=== PATIENT | female | born 1935 | race Caucasian/White ===

== ENCOUNTER 2017-12-31 09:13 | Day surgery (SDC) | payer MEDICARE, BC ==
[2017-12-25 15:28] VITALS: BMI 20.7
[~2017-12-31 09:13] MED LIST: ALPRAZolam 0.25 MG TAB PO PRN; ALPRAZolam 0.5 MG TAB PO PRN; ASPIRIN 325 MG TAB PO STA; ATORVASTATIN 80 MG TAB PO STA; NITROGLYCERIN SL TABS 0.4 MG TAB SUBLINGUAL PRN; SODIUM CHLORIDE 0.9% 1,000 ML in EMPTY BAG 1 BAG IV ONE
[2017-12-31 09:56] LABS: Basophils % (A) 0 %; Eosinophils # (A) 0.2 k/uL (0-0.7); Eosinophils % (A) 4 %; HCT 39.3 % (34.0-46.0); HGB 13.5 gm/dL (11.4-16.0); Lymphocytes # (A) 1.8 k/uL (1.0-4.8); Lymphocytes % (A) 39 %; MCH 31.9 pg (25.0-35.0); MCHC 34.2 g/dL (31.0-37.0); Mean Platelet Volume 7.3; Monocytes # (A) 0.3 k/uL (0-1.0); Monocytes % (A) 7 %; Neutrophils # (A) 2.2 k/uL (1.3-7.7); Neutrophils % (A) 48 %; Platelet Count 235 k/uL (150-450); RBC 4.23 m/uL (3.80-5.40); RDW 12.2 % (11.5-15.5); WBC 4.7 k/uL (3.8-10.6)
[2017-12-31 10:15] LABS: Anion Gap 12 mmol/L; Blood Urea Nitrogen 21 mg/dL (7-17); Carbon Dioxide 29 mmol/L (22-30); Chloride 102 mmol/L (98-107); Glucose 88 mg/dL (74-99); Potassium 4.6 mmol/L (3.5-5.1); Sodium 143 mmol/L (137-145)
[2017-12-31] MEDS ORDERED: diphenhydrAMINE 50 MG/ML 1 ML VIAL ONE (11:46)
[2017-12-31] MEDS ORDERED: MIDAZOLAM 2 MG/2 ML VIAL ONE (11:46)
[2017-12-31] MEDS ORDERED: LIDOCAINE 2% INJ 20 MG/ML (20 ML MDV) ONE (11:47)
[2017-12-31] MEDS: MIDAZOLAM 2 MG/2 ML VIAL IVP ONE ×2 (11:53→11:57)
[2017-12-31] MEDS ORDERED: diphenhydrAMINE 50 MG/ML 1 ML VIAL IVP ONE (11:53)
[2017-12-31] MEDS ORDERED: LIDOCAINE 2% INJ 20 MG/ML SQ ONE (11:56)
[2017-12-31] MEDS ORDERED: BIVALIRUDIN BOLUS 250 MG/50 ML IV ONE (12:14)
[2017-12-31] MEDS ORDERED: BIVALIRUDIN 250 MG in SODIUM CHLORIDE 0.9% 50 ML IV ONE (12:15)
[2017-12-31] MEDS: NITROGLYCERIN 1000MCG/10ML SYRINGE INTRACORON ONE ×2 (12:22→12:23)
[2017-12-31] MEDS ORDERED: CLOPIDOGREL 75 MG TAB ONE (12:26)
[2017-12-31] MEDS ORDERED: CLOPIDOGREL 75 MG TAB PO ONE (12:30)
[2017-12-31] MEDS ORDERED: IOPAMIDOL-370 100ML BTL INJ ONE (12:31)
[2017-12-31] MEDS ORDERED: RX INFO: IV CONTRAST WAS GIVEN 1 EACH MISC MISCELLANE PRN (12:33)
[2017-12-31] MEDS ORDERED: ATROPINE SULFATE 0.1 MG/ML 10ML SYRINGE IV PRN (12:33)
[2017-12-31] MEDS ORDERED: MAG HYDROX/AL HYDROX/SIMETH 30 ML CUP PO PRN (12:33)
[2017-12-31] MEDS ORDERED: ZOLPIDEM 5 MG TAB PO PRN (12:33)
[2017-12-31] MEDS ORDERED: NITROGLYCERIN SL TABS 0.4 MG TAB SUBLINGUAL PRN (12:33)
--- NOTE | 2017-12-31 15:51 | CC ---
CARDIAC CATHETERIZATION REPORT DATE OF SERVICE: 12/31/2017 PROCEDURE: 1. Left heart catheterization and coronary angiography. 2. PTCA and stenting of mid LAD with a drug-eluting stent. PERFORMED BY: Dr. Holly Armstrong. Moderate conscious sedation time was 32 minutes. The patient was administered Versed and Benadryl. She was observed closely for oxygen saturation, hemodynamics and EKG. CLINICAL INFORMATION: Imelda Dillon is an 82-year-old lady with a known history of paroxysmal atrial fibrillation and hypertension with recent abnormal stress test with anteroapical lateral reversible defect of moderate size. She was advised coronary angiography. Risks, benefits, options, rationale were explained. PROCEDURE NOTE: Under local anesthesia and strict aseptic precautions, a 6-Spanish introducer was placed in the right femoral artery. Standard Jaymie catheters were used to perform coronary angiography and a pigtail catheter was used to check LV pressures. LV gram was not performed. The patient had a significant mid LAD lesion and I went on to perform intervention in the same setting. CARDIAC CATHETERIZATION FINDINGS: The left ventricle end-diastolic pressure was about 12 mmHg without any gradient across aortic valve. Left ventriculogram was not performed. CORONARY ANGIOGRAPHY FINDINGS: RIGHT CORONARY ARTERY: This is a heavily calcified vessel, has no significant disease, distally bifurcates into a large PDA and PLV, both of which supply a sizable amount of myocardium. There are minor irregularities of about 20-30%, but no significant disease in the dominant calcified RCA. LEFT MAIN CORONARY ARTERY: Long patent disease-free vessel that bifurcates into LAD and circumflex. Left main itself has mild to moderate calcification. No significant disease. LEFT ANTERIOR DESCENDING CORONARY ARTERY: This is also a heavily calcified vessel that gives off 2 diagonal branches, very proximally and then several septal branches. After the second diagonal branch the artery has a curve and in this curve, there is a 70-80% eccentric stenosis beyond which the caliber of the vessel decreases and the vessel runs all the way to the apex to supply the inferoapical portion of left ventricle. The mid LAD therefore has a 70-80% mid lesion eccentric after which the caliber decreases. There is diffuse disease in the distal LAD noted. LEFT POSTERIOR CIRCUMFLEX CORONARY ARTERY: Technically nondominant vessel. Good caliber vessel, gives off a single obtuse marginal that runs laterally, and 2 branches in the AV groove are free of significant disease. There is also mild to moderate calcification in the mid circumflex noted. FINAL IMPRESSION: This patient has a mid LAD 70-80% stenosis. The circumflex and the RCA are also heavily calcified, but no significant disease. Left main has no significant disease. The LAD is heavily calcified. LV pressures were normal but LV-gram was not performed. RECOMMENDATION: I recommend intervention of the LAD and proceeded to perform this in the same setting. PCI PROCEDURE DETAILS: A 3.5 XB LAD guide catheter was used to cannulate the left coronary artery. I used a run-through wire to cross the lesion. Without predilatation primary stenting of this mid lesion was performed with a 2.25 caliber 12 mm long Xience stent. Excellent angiographic result without complication was achieved. The patient had chest pain and precordial ST elevation. Excellent angiographic result was achieved. There was no complication. Distal flow was excellent. The sheath was sutured in and will be pulled in about 2 to 2-1/2 hours. Results were discussed with the patient and family members. I expect that she will be discharged tomorrow if she remains stable. The patient is also on apixaban. This will be held for now and I will place her on a combination of Plavix and apixaban as an outpatient. MMODL / IJN: [id number] /
--- NOTE | 2017-12-31 15:57 | LTR ---
December 31, [address] Cruz: Thank you for the opportunity to participate in the care of Mrs Imelda Dillon. Please find enclosed my detailed cardiac catheterization report and PCI report for your records. This lady had abnormal stress test and a mid LAD lesion was noted and this was addressed with a drug-eluting stent. Excellent angiographic result was achieved without complication. I expect that she will be discharged tomorrow if she remains stable. Thank you for referring. Please call for questions. With kindest regards, Sincerely. MMODL / IJN: [id number] /
[2017-12-31] MEDS: SODIUM CHLORIDE 0.9% 1,000 ML IV SCH (17:40)
[2017-12-31 18:26] VITALS: TEMP 97.7
[2017-12-31] MEDS ORDERED: ATORVASTATIN 40 MG TAB PO SCH (21:00)
[2017-12-31] MEDS: METOPROLOL TARTRATE 50 MG TAB PO SCH (21:03)
[2018-01-01] MEDS: SODIUM CHLORIDE 0.9% 1,000 ML IV SCH (06:03)
[2018-01-01 06:04] LABS: Glucose,Whole Blood 92 mg/dL (75-99)
[2018-01-01 06:10] LABS: Basophils % (A) 0 %; Eosinophils # (A) 0.1 k/uL (0-0.7); Eosinophils % (A) 3 %; HCT 37.7 % (34.0-46.0); HGB 12.7 gm/dL (11.4-16.0); Lymphocytes # (A) 1.5 k/uL (1.0-4.8); Lymphocytes % (A) 35 %; MCH 31.5 pg (25.0-35.0); MCHC 33.6 g/dL (31.0-37.0); MCV 93.8 fL (80.0-100.0); Mean Platelet Volume 7.3; Monocytes # (A) 0.3 k/uL (0-1.0); Monocytes % (A) 8 %; Neutrophils # (A) 2.3 k/uL (1.3-7.7); Neutrophils % (A) 53 %; Platelet Count 207 k/uL (150-450); RBC 4.02 m/uL (3.80-5.40); RDW 12.3 % (11.5-15.5); WBC 4.4 k/uL (3.8-10.6)
[2018-01-01 06:25] LABS: Anion Gap 10 mmol/L; Blood Urea Nitrogen 15 mg/dL (7-17); Calcium 9.6 mg/dL (8.4-10.2); Carbon Dioxide 28 mmol/L (22-30); Chloride 105 mmol/L (98-107); Glucose 93 mg/dL (74-99); Potassium 4.7 mmol/L (3.5-5.1); Sodium 143 mmol/L (137-145)
[2018-01-01 06:27] VITALS: BP 125/69; PULSE 76; RESP 16
[2018-01-01] MEDS: METOPROLOL TARTRATE 50 MG TAB PO SCH (07:52)
--- NOTE | 2018-01-01 08:12 | DS ---
DISCHARGE SUMMARY DATE OF ADMISSION: 12/31/2017. DATE OF DISCHARGE: 01/01/2018 DIAGNOSES: 1. Unstable angina. 2. Paroxysmal atrial fibrillation. 3. Hypertension. 4. Hypercholesterolemia. Mrs. Imelda Dillon was brought into the hospital because of an abnormal stress test. Cardiac cath revealed mid LAD 70-80% eccentric lesion, which was stented with a 2.25 caliber 12 mm drug-eluting stent. Excellent angiographic result was achieved. Postprocedure course was uneventful. Her right groin is clean and dry. EKG and laboratory data were reviewed and they are unremarkable. EKG was also reviewed, which was unremarkable. Patient had uneventful course. The right groin is clean and dry. PHYSICAL EXAMINATION: Blood pressure today is 120/70, pulse rate 70 per minute, sinus. S1, S2 heard normally. Short systolic murmur noted. Lungs are clear. Abdomen is soft, nontender. Lower extremities reveal normal pulses. Right groin is clean and dry with a good pulse. EKG is unremarkable. Plan is to discharge the patient today and I will see her next on the at 9:15 a.m. Discharge instructions regarding activity, diet and medications were given. Prescriptions were also given. Patient will be discharged on aspirin and Plavix. I will hold apixaban for 1 week and resume apixaban and Plavix after 1 week. She will be on Lipitor 40 mg daily and continue beta blockers. Discharge instructions were given. Advised not to return to work until she sees me. MMODL / IJN: [id number] /
[2018-01-01] MEDS ORDERED: CLOPIDOGREL 75 MG TAB PO SCH (09:00)
[2018-01-01] MEDS ORDERED: DIGOXIN 125 MCG TAB PO SCH (09:00)
[2018-01-01] MEDS ORDERED: ASPIRIN 81 MG PO SCH (09:00)
[2018-01-01] MEDS ORDERED: MULTIVITAMINS, THERA 1 EACH TAB PO SCH (12:00)
== END 2018-01-01 09:07 | disposition home or self-care (01) ==
LOC: CATHCVL 09:13 → 6SEL 12:29 → CATHCVL 01-01 09:07
PROVIDERS: ATTEND Internal Medicine Interventional Cardiology
DX: I25.110 Atherosclerotic heart disease of native coronary artery with unstable angina pectoris (principal); R94.39 Abnormal result of other cardiovascular function study; I48.0 Paroxysmal atrial fibrillation; I10 Essential (primary) hypertension; E78.00 Pure hypercholesterolemia, unspecified; Z79.01 Long term (current) use of anticoagulants; Z79.82 Long term (current) use of aspirin; Z79.899 Other long term (current) drug therapy
CPT/HCPCS: 93458; 80048 ×2; 85025 ×2; C9600; C1887; C1769 ×3; C1894; C1874; J2001; J2250; J1200; J0583; Q9967

== ENCOUNTER 2023-10-23 08:53 | Emergency (ER) | payer MEDICARE, BC ==
--- NOTE | 2023-10-23 09:28 | XR ---
EXAMINATION TYPE: XR Hip LT and AP Pelvis DATE OF EXAM: 10/23/2023 9:22 AM CLINICAL INDICATION:Female, 88 years old with history of pain; PH[facility] COMPARISON: None. TECHNIQUE: XR Hip LT and AP Pelvis; hip was examined in the frontal and lateral projections and a AP pelvis. FINDINGS: No evidence for acute process, joint dislocation or significant soft tissue swelling. Osteo phyte formation of the superior acetabulum of the hip bilaterally. There is joint space narrowing wor se on the right. Degenerating calcified fibroid versus high density stool noted. Severe degeneration changes of the lower spine. IMPRESSION: 1. No evidence for acute process. 2. Moderate to severe right and moderate left hip osteoarthrosis.
[2023-10-23 09:30] VITALS: TEMP 98.2
--- NOTE | 2023-10-23 10:32 | CT ---
EXAMINATION TYPE: CT pelvis wo con CT DLP: 261.5 mGycm, Automated exposure control for dose reduction was used. DATE OF EXAM: 10/23/2023 10:21 AM COMPARISON: Hip radiograph same day. CLINICAL INDICATION:Female, 88 years old with history of fall, unable to ambulate; Fall, unable to am bulate TECHNIQUE: Axial CT pelvis wo con;Sagittal and coronal reformats were created on a separate workstat ion. Contrast used:(none if empty) Oral contrast used: without Oral Contrast (none if empty) FINDINGS: BLADDER: Unremarkable REPRODUCTIVE: Multiple calcified fibroids are noted. ABDOMEN & PELVIS STOMACH AND BOWEL: No evidence of bowel obstruction. The appendix is visualized and normal. Scattered colonic diverticula. PERITONEUM/RETROPERITONEUM: No evidence of pneumoperitoneum or free fluid. VASCULATURE: No evidence of aortic aneurysm. MUSCULOSKELETAL: Cortical buckling of the left inferior pubic ramus. The femurs and there remaining b yusef pelvis appear intact. There is severe joint space narrowing on the right with subchondral cystic change and sclerosis. There is moderate to severe left trace space narrowing. Severe degeneration bisi nges of the lower spine. LYMPH NODES: No gross evidence for lymphadenopathy. SOFT TISSUE/ABDOMINAL WALL: Unremarkable IMPRESSION: 1. Nondisplaced left inferior pubic ramus fracture. The femurs appear intact. 2. Severe osteoarthrosis of the right hip and moderate to severe the left hip. 3. Colonic diverticulosis. 4. Fibroid uterus.
--- NOTE | 2023-10-23 10:46 | ED ---
Fall HPI - General Chief Complaint: Fall Stated Complaint: FALL Time Seen by Provider: 10/23/23 09:03 Source: patient, RN notes reviewed Mode of arrival: wheelchair Limitations: no limitations - History of Present Illness Initial Comments: 88-year-old female presents emergency department complaint of left hip, pelvic pain. Patient states that she tripped at work. Patient states she fell onto her buttocks. She had no head injury no loss conscious. Patient states she only has left pelvic, hip pain. Patient states she had no head injury no loss conscious she is on blood thinners. Denies any back pain denies any flank pain no other symptoms. - Related Data Home Medications Medication Instructions Recorded Confirmed Aspirin [Adult Low Dose Aspirin EC] 81 mg PO DAILY 12/25/17 12/31/17 Calcium (Unknown Dose) 1 tab PO DAILY 12/25/17 12/31/17 Digoxin [Lanoxin] 125 mcg PO DAILY 12/25/17 12/31/17 Metoprolol Tartrate [Lopressor] 50 mg PO BID 12/25/17 12/31/17 Multivitamins, Thera [Multivitamin 1 tab PO DAILY 12/25/17 12/31/17 (formulary)] Previous Rx's Medication Instructions Recorded Aspirin 81 mg PO DAILY chew 01/01/18 Atorvastatin [Lipitor] 40 mg PO HS tab 01/01/18 Clopidogrel [Plavix] 75 mg PO DAILY tab 01/01/18 Nitroglycerin Sl Tabs [Nitrostat] 0.4 mg SUBLINGUAL Q5M PRN tab 01/01/18 Allergies Allergy/AdvReac Type Severity Reaction Status Date / Time No Known Allergies Allergy Verified 10/23/23 08:58 Review of Systems ROS Statement: Those systems with pertinent positive or pertinent negative responses have been documented in the HPI. ROS Other: All systems not noted in ROS Statement are negative. Past Medical History Past Medical History: Atrial Fibrillation, Hyperlipidemia, Osteoarthritis (OA) History of Any Multi-Drug Resistant Organisms: None Reported Past Surgical History: Heart Catheterization With Stent, Orthopedic Surgery Additional Past Surgical History / Comment(s): Right wrist surgery with plate. Past Anesthesia/Blood Transfusion Reactions: No Reported Reaction Date of Last Stent Placement:: 12/31/2017 Past Psychological History: No Psychological Hx Reported Past Alcohol Use History: Rare Past Drug Use History: None Reported - Past Family History Mother Family Medical History: No Reported History General Exam Limitations: no limitations General appearance: alert, in no apparent distress Head exam: Present: atraumatic, normocephalic, normal inspection Neck exam: Present: normal inspection. Absent: tenderness, meningismus, lymphadenopathy Respiratory exam: Present: normal lung sounds bilaterally. Absent: respiratory distress, wheezes, rales, rhonchi, stridor Cardiovascular Exam: Present: regular rate, normal rhythm, normal heart sounds. Absent: systolic murmur, diastolic murmur, rubs, gallop, clicks Extremities exam: Present: other (Left leg full range of motion neurovascular intact there is a left pelvic, hip tenderness) Course Vital Signs 10/23/23 08:56 Temperature 98.2 F Pulse Rate 86 Respiratory 16 Rate Blood Pressure 144/76 O2 Sat by Pulse 96 Oximetry Medical Decision Making - Medical Decision Making Was pt. sent in by a medical professional or institution (MORGAN Hernandez, PLANT ASSIGNER, urgent care, hospital, or intermediate...) When possible be specific @ -No Did you speak to anyone other than the patient for history (EMS, parent, family, police, friend...)? What history was obtained from this source @ -No Did you review nursing and triage notes (agree or disagree)? Why? @ -I reviewed and agree with nursing and triage notes Were old charts reviewed (outside hosp., previous admission, EMS record, old EKG, old radiological studies, urgent care reports/EKG's, intermediate records)? Report findings @ -No old charts were reviewed Differential Diagnosis (chest pain, altered mental status, abdominal pain women, abdominal pain men, vaginal bleeding, weakness, fever, dyspnea, syncope, headache, dizziness, GI bleed, back pain, seizure, CVA, palpatations, mental health, musculoskeletal)? @ -[Fall, pelvic fracture, hip fracture EKG interpreted by me (3pts min.). @ -None X-rays interpreted by me (1pt min.). @ -[X-ray left hip, pelvis no acute fracture noted CT interpreted by me (1pt min.). @ -[CT pelvis showing left inferior pubic rami fracture U/S interpreted by me (1pt. min.). @ -[None done What testing was considered but not performed or refused? (CT, X-rays, U/S, labs)? Why? @ -None What meds were considered but not given or refused? Why? @ -None Did you discuss the management of the patient with other professionals (professionals i.e. , PA, PLANT ASSIGNER, lab, RT, psych nurse, social group worker, cdl instructor, teacher, water resources technical officer, case therapist)? Give summary @ -No Was smoking cessation discussed for >3mins.? @ -No Was critical care preformed (if so, how long)? @ -No Were there social determinants of health that impacted care today? How? (Homelessness, low income, unemployed, alcoholism, drug addiction, transportation, low edu. Level, literacy, decrease access to med. care, long term, rehab)? @ -No Was there de-escalation of care discussed even if they declined (Discuss DNR or withdrawal of care, Hospice)? DNR status @ -No What co-morbidities impacted this encounter? (DM, HTN, Smoking, COPD, CAD, Cancer, CVA, ARF, Chemo, Hep., AIDS, mental health diagnosis, sleep apnea, morbid obesity)? @ -None Was patient admitted / discharged? Hospital course, mention meds given and route, prescriptions, significant lab abnormalities, going to OR and other pertinent info. @ -[Discharge patient presented for a fall. Patient has left inferior pubic rami fracture. Patient is unable to ambulate on her own without assistance. She will require walker to remain partial weightbearing and to assist in ambulation. Undiagnosed new problem with uncertain prognosis? @ -No Drug Therapy requiring intensive monitoring for toxicity (Heparin, Nitro, Insulin, Cardizem)? @ -No Were any procedures done? @ -No Diagnosis/symptom? @ -[Fall, left pubic rami fracture Acute, or Chronic, or Acute on Chronic? @ -Acute Uncomplicated (without systemic symptoms) or Complicated (systemic symptoms)? @ -Uncomplicated Side effects of treatment? @ -No Exacerbation, Progression, or Severe Exacerbation? @ -No Poses a threat to life or bodily function? How? (Chest pain, USA, PA, pneumonia, PE, COPD, DKA, ARF, appy, cholecystitis, CVA, Diverticulitis, Homicidal, Suicidal, threat to staff... and all critical care pts) @ -No Disposition Clinical Impression: Fall, Fracture of left inferior pubic ramus Disposition: HOME SELF-CARE Condition: Stable Instructions (If sedation given, give patient instructions): Pelvic Fracture (ED) Additional Instructions: Please return to the Emergency Department if symptoms worsen or any other concerns. Is patient prescribed a controlled substance at d/c from ED?: No Referrals: Basia Bowles MD [Primary Care Provider] - 1-2 days Jeffrey Gutierrez MD [STAFF PHYSICIAN] - 1-2 days Time of Disposition: 10:46
[2023-10-23] MEDS: ACET/COD 300 MG/30 MG STARTER PACK 6 TAB BTL PO STA (10:57)
[2023-10-23 11:05] VITALS: BP 132/78; PULSE 80; RESP 18
== END 2023-10-23 12:12 | disposition home or self-care (01) ==
LOC: EC 08:53
DX: S32.592A Other specified fracture of left pubis, initial encounter for closed fracture (principal); W01.0XXA Fall on same level from slipping, tripping and stumbling without subsequent striking against object, initial encounter; Y99.0 Civilian activity done for income or pay
CPT/HCPCS: 72192; 73502; 99284

== ENCOUNTER → 2024-06-10 | Outpatient (CLI) | payer MEDICARE, BC ==
[2024-06-10 18:32] LABS: Basophils # (A) 0.04 X 10*3/uL (0.00-0.10); Basophils % (A) 0.5 %; Eosinophils # (A) 0.17 X 10*3/uL (0.04-0.35); HCT 39.7 % (37.2-46.3); HGB 12.8 g/dL (12.0-15.0); Lymphocytes # (A) 1.71 X 10*3/uL (0.90-5.00); Lymphocytes % (A) 20.5 %; MCH 31.5 pg (27.0-32.0); MCHC 32.2 g/dL (32.0-37.0); MCV 97.8 FL (80.0-97.0); Mean Platelet Volume 10.6 FL (9.5-12.2); Monocytes # (A) 0.74 X 10*3/uL (0.20-1.00); Monocytes % (A) 8.9 %; NRBC Per 100 WBC 0 X 10*3/uL (0.00-0.01); Neutrophils # (A) 5.66 X 10*3/uL (1.80-7.70); Neutrophils % (A) 67.7 %; Platelet Count 346 X 10*3/uL (140-440); RBC 4.06 X 10*6/uL (4.10-5.20); RDW 14.1 % (11.5-14.5); WBC 8.35 X 10*3/uL (4.50-10.00)
== END | disposition home or self-care (01) ==
LOC: LABWHC1 13:50
PROVIDERS: ATTEND Surgery
DX: Z01.818 Encounter for other preprocedural examination (principal)
CPT/HCPCS: 36415; 85025; 86850; 86900; 86901

== ENCOUNTER → 2024-06-12 | Outpatient (CLI) | payer MEDICARE, BC ==
--- NOTE | 2024-06-12 18:29 | PE ---
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 Images are reviewed on the computer in the coronal, axial, and sagittal planes. Reconstructed rotating images are created on independent workstation and reviewed on the computer. A non-contrast CT is performed in conjunction with the PET scan. Glucose level 97 mg/dL CT DLP: 169.05 mGycm, Automated exposure control for dose reduction was used. COMPARISON: CT 10/23/2023, PET/CT None, MRI: None FINDINGS: Mediastinal SUV mean is 2.0. Hepatic parenchyma SUV mean is 2.4. SKULL BASE AND NECK: No suspicious radiotracer activity. CHEST, MEDIASTINUM, AND HILAR REGION: No suspicious radiotracer activity. Circumferential wall thickening of the distal esophagus with patulous air-filled midportion. Wall thi ckening is at the level of the heart extending to the GE junction. This demonstrates a maximum SUV of 16.0. Additional separate left paraesophageal focus of radiotracer uptake with a maximum SUV of 3.6. Probab le lymph node. ABDOMEN AND PELVIS: No suspicious radiotracer activity. MUSCULOSKELETAL STRUCTURES: No suspicious radiotracer activity. OTHER CT: Bilateral aphakia with scleral calcifications. Cardiomegaly. Aortic valvular calcifications . Moderate coronary arterial calcifications. Ascending thoracic aortic aneurysm measuring up to 4.1 c m. Mild to moderate atherosclerotic calcification of the aorta and its branches. Calcified fibroid ch aguilar of the uterus with largest measuring up to 3.8 cm. Rectal fecaloma measuring up to 8.4 cm. Moder ate colonic stool burden. Distal colonic diverticulosis. Remote left inferior and superior pubic carol s fractures. Osteoarthritic changes of both hips. Multilevel degenerative changes of the visualized s pine. IMPRESSION: 1. Abnormal FDG avid circumferential wall thickening of the distal esophagus consistent with reporte d esophageal malignancy. 2. Small left paraesophageal mild focus of radiotracer uptake possibly representing a metastatic lym ph node. No recent corresponding contrast imaging available for comparison. No other suspicious sites of radiotracer uptake. [facility], , 06/12/2024 6:26 PM
== END | disposition home or self-care (01) ==
LOC: RADPETMAIN 12:45
PROVIDERS: ATTEND Internal Medicine Hematology & Oncology
DX: C15.5 Malignant neoplasm of lower third of esophagus (principal); K22.89 Other specified disease of esophagus; R93.7 Abnormal findings on diagnostic imaging of other parts of musculoskeletal system
CPT/HCPCS: 78815; A9552

== ENCOUNTER 2024-06-18 12:04 | Day surgery (SDC) | payer MEDICARE, BC ==
[~2024-06-18 12:04] MED LIST changes: -ALPRAZolam 0.25 MG TAB PO PRN; -ALPRAZolam 0.5 MG TAB PO PRN; -ASPIRIN 325 MG TAB PO STA; -ATORVASTATIN 80 MG TAB PO STA; +HEPARIN SODIUM,PORCINE 5,000 UNIT/ML 1 ML VIAL SQ PRN; +HYDROmorphone 0.5 MG/0.5 ML SYRINGE IVP PRN; -NITROGLYCERIN SL TABS 0.4 MG TAB SUBLINGUAL PRN; -SODIUM CHLORIDE 0.9% 1,000 ML in EMPTY BAG 1 BAG IV ONE
[2024-06-18] MEDS: ACETAMINOPHEN TAB 500 MG TAB PO PRN (12:51)
[2024-06-18] MEDS: DEXAMETHASONE SOD PHOSPHATE 4 MG/ML 1 ML VIAL IV ONE (13:12)
[2024-06-18] MEDS: LACTATED RINGERS 1,000 ML IV SCH (13:12)
[2024-06-18] MEDS: ONDANSETRON 4 MG/2 ML VIAL IVP ONE (13:12)
[2024-06-18] MEDS: IV FLUID CONTINUATION 1,000 ML IV ONE ×3 (13:15→14:46)
--- NOTE | 2024-06-18 13:17 | P.HPADDEND ---
H&P Addendum H&P Addendum Date: 06/18/24 Spoke with patient and her daughter in preop. Her case was discussed with oncology yesterday. Apparently oncology has had another discussion with them recently and they are of the opinion that they will not be proceeding with future esophageal gastrectomy if there is failure of treatment. In that case using the stomach for feeding tube placement is reasonable. She would prefer this partly for ease of use, complication profile, and not having to use a pump. Will proceed with EGD with possible PEG tube placement. Will proceed with robotic assisted gastrostomy tube placement if unable to place PEG tube.
[2024-06-18] MEDS ORDERED: PROPOFOL 10 MG/ML 20 ML VIAL IV ONE (13:18)
[2024-06-18] MEDS ORDERED: ACETAMINOPHEN IV (For NPO) 1,000 MG/100 ML VIAL ONE (13:18)
[2024-06-18] MEDS ORDERED: LIDOCAINE 1% INJ 10MG/ML (20 ML MDV) ONE (13:18)
[2024-06-18] MEDS ORDERED: NALOXONE 0.4 MG/ML 1 ML VIAL IV PRN (14:06)
[2024-06-18] MEDS ORDERED: ONDANSETRON 4 MG/2 ML VIAL IVP PRN (14:07)
[2024-06-18] MEDS ORDERED: HYDROmorphone 0.5 MG/0.5 ML SYRINGE IVP PRN (14:07)
[2024-06-18] MEDS ORDERED: ACETAMINOPHEN IV (For NPO) 700 MG in EMPTY BAG 1 BAG IVPB PRN (14:07)
--- NOTE | 2024-06-18 14:29 | P.PCN ---
Date of Procedure: 06/18/24 Procedure(s) Performed: Preoperative Dx: Esophageal cancer Postoperative Dx: Same Procedure: EGD with PEG tube placement Anesthesia: Sedation Endoscopist: Dr. Long Specimens: None Endoscopic Procedure: The patient was brought into the operating room and kept on the stretcher for the procedure. The patient was sedated per anesthesia. The smallest gastroscope that we had available was utilized for this procedure. The scope was advanced to the distal esophagus where the friable tumor was noted. I was able to visualize the lumen during the entirety of the procedure. With gentle pressure I was able to advance past the tumor site into the stomach. The tumor was somewhat friable and there was some spontaneous bleeding from the passage of the scope there. The scope was then passed under direct visualization to the region of the third portion of the duodenum. From that point the scope was slowly withdrawn inspecting all surfaces carefully. There were no neoplastic inflammatory or polypoid lesions throughout the duodenum. The pylorus was widely patent. The stomach was carefully inspected. There was no visible tumor or significant inflammatory changes within the stomach. The light was seen shining through the abdominal wall in the left upper quadrant. The skin was prepped and the skin was then infiltrated with lidocaine. While aspirating with that same needle we entered into the gastric lumen without difficulty. The distance into the stomach lumen was appropriate in length and there was no air encountered until we entered the stomach. The site was chosen for the PEG tube placement. A small vertical incision was made. The Seldinger needle was advanced into the antral region. The snare was used to grasp the wire. The wire was pulled out through the oropharynx. The catheter was then threaded over the guidewire and pulled through the abdominal wall until the bolster could be applied at 2.5 cm. A drain sponge was applied. Given the relative challenge of getting past the initial tumor I did not reinspect the intragastric portion of the tube since it went in so easily. The dual port feeding adapter was then applied. The patient was then taken to the recovery room in stable condition per anesthesia guidelines.
[2024-06-18] MEDS: ACETAMINOPHEN IV (For NPO) 700 MG in EMPTY BAG 1 BAG IVPB STA (18:02)
[2024-06-18] MEDS: D5-0.45% NACL WITH KCL 20MEQ/L 1,000 ML IV SCH (18:32)
[2024-06-19 07:39] VITALS: RESP 17
[2024-06-19] MEDS: PANTOPRAZOLE 40 MG/10 ML VIAL IV SCH (08:03)
--- NOTE | 2024-06-19 12:29 | P.CONS ---
History of Present Illness - History of Present Illness Patient pleasant 88-year-old female admitted for elective PEG tube placement pat ient is structurally underwent surgery patient is feeling well bit hungry will be started on PEG tube feedings today. Patient does have history of atrial fibrillation on Eliquis 2.5 twice a day. Patient has esophageal cancer not started on chemotherapy yet. REVIEW OF SYSTEMS: All other systems are negative except those mentioned in the HPI PHYSICAL EXAMINATION: GENERAL: The patient is alert and oriented x3, not in any acute distress. Thin built mild to moderately malnourished female HEENT: Pupils are round and equally reacting to light. EOMI. No scleral icterus. No conjunctival pallor. Normocephalic, atraumatic. No pharyngeal erythema. No thyromegaly. CARDIOVASCULAR: S1 and S2 present. No murmurs, rubs, or gallops. PULMONARY: Chest is clear to auscultation, no wheezing or crackles. ABDOMEN: Soft, nontender, nondistended, normoactive bowel sounds. No palpable organomegaly. MUSCULOSKELETAL: No joint swelling or deformity. EXTREMITIES: No cyanosis, clubbing, or pedal edema. NEUROLOGICAL: Gross neurological examination did not reveal any focal deficits. SKIN: No rashes. Assessment and plan -Paroxysmal atrial fibrillation patient presently appears to be in sinus rhythm patient can be resumed on Eliquis today once she she is started on PEG tube feedings. Patient was started on beta-berkley and amiodarone as well -Mild to moderate malnutrition secondary to esophageal cancer patient is a PEG tube in place -Esophageal cancer will undergo chemotherapy DVT prophylaxis: As per primary service and early ambulation REVIEW OF SYSTEMS: All other systems are negative except those mentioned in the HPI PHYSICAL EXAMINATION: GENERAL: The patient is alert and oriented x3, not in any acute distress. Well developed, well nourished. HEENT: Pupils are round and equally reacting to light. EOMI. No scleral icterus. No conjunctival pallor. Normocephalic, atraumatic. No pharyngeal erythema. No thyromegaly. CARDIOVASCULAR: S1 and S2 present. No murmurs, rubs, or gallops. PULMONARY: Chest is clear to auscultation, no wheezing or crackles. ABDOMEN: Soft, nontender, nondistended, normoactive bowel sounds. No palpable organomegaly. MUSCULOSKELETAL: No joint swelling or deformity. EXTREMITIES: No cyanosis, clubbing, or pedal edema. NEUROLOGICAL: Gross neurological examination did not reveal any focal deficits. SKIN: No rashes. Assessment and plan DVT prophylaxis: Further Past Medical History Past Medical History: Atrial Fibrillation, Hyperlipidemia, Osteoarthritis (OA) Additional Past Medical History / Comment(s): esophageal cancer, 05/2024. hx fx pelvis 10/30/23 - healed. recent PET scan. Decreased nutrition - Boost TID History of Any Multi-Drug Resistant Organisms: None Reported Past Surgical History: Heart Catheterization With Stent, Orthopedic Surgery Additional Past Surgical History / Comment(s): Right wrist surgery with plate, Peg tube insertion Past Anesthesia/Blood Transfusion Reactions: No Reported Reaction Date of Last Stent Placement:: 12/31/2017 Past Psychological History: No Psychological Hx Reported Smoking Status: Former smoker Past Alcohol Use History: Rare Additional Past Alcohol Use History / Comment(s): Quit smoking in the s. Past Drug Use History: None Reported - Past Family History Mother Family Medical History: No Reported History Father Additional Family Medical History / Comment(s): ? heart issues Medications and Allergies Home Medications Medication Instructions Recorded Confirmed Type Calcium (Unknown Dose) 1 tab PO DAILY 12/25/17 06/18/24 History Metoprolol Tartrate [Lopressor] 25 mg PO BID 12/25/17 06/18/24 History Multivitamins, Thera [Multivitamin 1 tab PO DAILY 12/25/17 06/18/24 History (formulary)] Amiodarone [Cordarone] 200 mg PO Q48H 06/15/24 06/18/24 History Apixaban [Eliquis] 2.5 mg PO BID 06/15/24 06/18/24 History polyethylene glycoL 3350 [Miralax] 17 gm PO DIRECTED 06/15/24 06/18/24 History Allergies Allergy/AdvReac Type Severity Reaction Status Date / Time No Known Allergies Allergy Verified 06/18/24 12:41 Physical Exam Vitals: Vital Signs Temp Pulse Resp BP Pulse Ox 06/19/24 06:58 97.9 F 76 17 123/66 96 06/19/24 01:01 98.1 F 72 18 105/56 95 06/18/24 19:35 98.0 F 75 18 115/58 97 06/18/24 17:05 97.5 F L 65 16 108/58 97 06/18/24 15:55 68 16 123/66 99 06/18/24 14:55 70 16 138/76 96 06/18/24 14:25 74 14 138/74 97 06/18/24 14:10 72 14 120/65 96 06/18/24 13:55 70 14 121/66 99 06/18/24 13:07 98.2 F 64 18 118/58 99 Intake and Output 06/18/24 06/19/24 06/19/24 22:59 06:59 14:59 Other: Voiding Method Toilet # Voids 1 1 Weight 47 kg 47.8 kg
[2024-06-19] MEDS: METOPROLOL TARTRATE 25 MG TAB PO SCH (12:39)
--- NOTE | 2024-06-19 14:02 | P.DS ---
Providers Expected date of discharge: 06/19/24 Attending physician: Maik Long Consults: 06/18/24 14:07 Consult Physician Routine Consulting Provider: Manju Ewing Consult Reason/Comments: Medical management Do you want consulting provider notified?: Yes Primary care physician: [facility] Course: Patient came in yesterday for elective feeding tube placement. Patient's family and she decided on gastrostomy. Thankfully we were able to place a endoscopic gastrostomy without difficulty. Complaining of mild discomfort today. She is quite anxious to go home. Will plan discharge. Continue resume liquid diet. Will start half volume bolus feeds on Saturday. Gradual advancing to full volume bolus feeding later in the week. She will follow-up with me next week. Plan - Discharge Summary Discharge Rx Participant: No New Discharge Prescriptions: No Action Metoprolol Tartrate [Lopressor] 25 mg PO BID Calcium (Unknown Dose) 1 tab PO DAILY Multivitamins, Thera [Multivitamin (formulary)] 1 tab PO DAILY Apixaban [Eliquis] 2.5 mg PO BID Amiodarone [Cordarone] 200 mg PO Q48H polyethylene glycoL 3350 [Miralax] 17 gm PO DIRECTED Discharge Medication List Calcium (Unknown Dose) 1 tab PO DAILY 12/25/17 [History] Metoprolol Tartrate [Lopressor] 25 mg PO BID 12/25/17 [History] Multivitamins, Thera [Multivitamin (formulary)] 1 tab PO DAILY 12/25/17 [History] Amiodarone [Cordarone] 200 mg PO Q48H 06/15/24 [History] Apixaban [Eliquis] 2.5 mg PO BID 06/15/24 [History] polyethylene glycoL 3350 [Miralax] 17 gm PO DIRECTED 06/15/24 [History] Follow up App[facility]ment(s[facility]Ref[facility] - [facility]iting Nurse, [NON-STAFF] - Activity/Diet/Wound Care/Special Instructions: Do not use PEG tube until Saturday - Nurse to evaluate PEG tube site and change PEG tube dressing on Saturday06/20/24 Jevity 1.5 1/2 can 8x/day starting Saturday06/22/24, then slowly advance to goal of five cans per day over 5 the next days - call Dr. Long with questions/concerns Water flushes 30cc q4hrs
[2024-06-19 15:00] VITALS: BMI 16.5
[2024-06-19 15:10] VITALS: BP 96/52; PULSE 61; TEMP 97.7
[2024-06-19] MEDS ORDERED: APIXABAN 2.5 MG TABLET PO SCH (21:00)
[2024-06-20] MEDS ORDERED: AMIODARONE 200 MG TAB PO SCH (09:00)
== END 2024-06-19 15:40 | disposition home health service (06) ==
LOC: OR 12:04 → 4SSUR 13:48 → OR 06-19 15:40
PROVIDERS: ATTEND Surgery